=== PATIENT | female | born 2000 | race Caucasian/White ===

== ENCOUNTER → 2018-05-05 13:39 | Outpatient (CLI) | payer OTHER, SELFPAY | PROVIDERS: Visit Provider Obstetrics & Gynecology | DX: N39.0 Urinary tract infection, site not specified (principal) | CPT/HCPCS: 87086; 87088 ==

== ENCOUNTER → 2018-05-29 10:04 | Outpatient (CLI) | payer OTHER, SELFPAY ==
[2018-05-29 12:14] LABS: Hematocrit 41.2 % (37-47); Hemoglobin 13.4 g/dl (12.0-15.0); Mean Corp Hgb Conc 32.5 g/gl (32-36); Mean Corpuscular Hgb 26.6 pg (27.0-32.0); Mean Corpuscular Volume 81.7 fL (81-99); Mean Platelet Vol. 9.6 fl (6.2-12.0); Platelet Count 364 K/mm3 (150-450); RBC Distribution Width SD 41.5 fl (35.1-43.9); Red Blood Count 5.04 M/mm3 (4.2-5.4); White Blood Count 6.6 K/mm3 (4.4-11.0)
[2018-05-29 12:19] LABS: Scan Indicated on CBC? Y/N NO
[2018-05-29 12:38] LABS: Ferritin 68 ng/mL (8-252); Iron 73 ug/dL (50-170); Iron Binding Capacity,Total 430 ug/dL (250-450); Thyroid Stim Hormone (TSH) 1.23 uIU/mL (0.358-3.74)
== END ==
PROVIDERS: Visit Provider Obstetrics & Gynecology
DX: R53.83 Other fatigue (principal)
CPT/HCPCS: 36415; 82728; 83540; 83550; 84443; 85027

== ENCOUNTER → 2019-07-18 13:22 | Outpatient (CLI) | payer OTHER, SELFPAY | PROVIDERS: Referring Provider Obstetrics & Gynecology; Visit Provider Obstetrics & Gynecology | DX: Z12.4 Encounter for screening for malignant neoplasm of cervix (principal); Z11.3 Encounter for screening for infections with a predominantly sexual mode of transmission ==

== ENCOUNTER → 2020-10-06 14:36 | Outpatient (CLI) | payer OTHER, SELFPAY ==
[2020-10-06 15:25] LABS: hCG Titer Quant., Serum 3 mIU/mL (1-3)
== END ==
PROVIDERS: Visit Provider Obstetrics & Gynecology
DX: O03.9 Complete or unspecified spontaneous abortion without complication (principal)
CPT/HCPCS: 36415; 84702; 86850; 86900; 86901

== ENCOUNTER → 2020-11-14 10:43 | Outpatient (CLI) | payer OTHER, SELFPAY ==
[2020-11-14 11:47] LABS: Estradiol 300.6 pg/mL
[2020-11-14 11:56] LABS: Progesterone Level 12.37 ng/mL (See Comment)
[2020-11-14 12:06] LABS: hCG Titer Quant., Serum 1791 mIU/mL (1-3)
[2020-11-18 20:07] LABS: Chlamydia By Nucleic Acid AMP Negative (Negative)
[2020-11-18 23:15] LABS: Gonococcus By Nucleic Acid AMP Negative (Negative)
== END ==
PROVIDERS: Visit Provider Obstetrics & Gynecology
DX: Z11.3 Encounter for screening for infections with a predominantly sexual mode of transmission (principal); Z34.81 Encounter for supervision of other normal pregnancy, first trimester
CPT/HCPCS: 36415; 82670; 84144; 84702; 87491; 87591

== ENCOUNTER → 2020-11-20 16:24 | Outpatient (CLI) | payer OTHER, SELFPAY ==
[2020-11-20 17:13] LABS: Estradiol 374.3 pg/mL
[2020-11-20 17:36] LABS: hCG Titer Quant., Serum 9220 mIU/mL (1-3)
== END ==
PROVIDERS: Visit Provider Obstetrics & Gynecology
DX: O20.0 Threatened abortion (principal)
CPT/HCPCS: 36415; 82670; 84144; 84702

== ENCOUNTER → 2020-12-12 14:19 | Outpatient (CLI) | payer OTHER, SELFPAY ==
[2020-12-12 15:21] LABS: Color, Urine Yellow (Yellow); Glucose, Dipstick Normal (Normal); Ketone-Dipstick Negative (Negative); Leukocyte Esterase-Dipstick Negative /ul (Negative); Nitrite-Dipstick Negative (Negative); Occult Blood-Urine Negative /ul (Negative); Protein-Dipstick Negative (Negative); Specific Gravity, Urine 1.015 (1.002-1.030); Urine Bilirubin Dipstick Negative (Negative); Urine Clarity Clear (Clear); Urine Urobilinogen Normal (Normal)
[2020-12-12 15:31] LABS: Absolute Lymphocyte Count 2.63 X10^3/uL (0.83-4.51); Absolute Neutrophil Count 9.5 X10^3/uL (2.0-7.7); Basophil# 0.06 X10^3/uL; Basophil% 0.5 % (0-1); Eosinophil# 0.17 X10^3/uL; Eosinophils% 1.3 % (0-5); Hematocrit 38.3 % (37-47); Hemoglobin 12.3 g/dL (12.0-15.0); Lymphocyte # 2.63 X10^3/ul (0.83-4.51); Lymphocyte % 20.1 % (19-41); Mean Corp Hgb Conc 32.1 g/dL (32-36); Mean Corpuscular Hgb 26.1 pg (27.0-32.0); Mean Corpuscular Volume 81.3 fL (81-99); Mean Platelet Vol. 9.6 fl (6.2-12.0); Monocyte# 0.67 X10^3/uL; Monocyte% 5.1 % (0-10); NRBC Flagged by Analyzer 0 % (0-5); Neutrophil # 9.48 X10^3/uL (2.7-7.7); Neutrophil % 72.6 % (47-70); Platelet Count 405 K/mm3 (150-450); RBC Distribution Width SD 41.1 fl (35.1-43.9); Red Blood Count 4.71 M/mm3 (4.2-5.4); White Blood Count 13.1 K/mm3 (4.4-11.0)
[2020-12-12 15:48] LABS: Glucose Challenge Gest 1H 50g 104 mg/dL (70-140); Thyroid Stim Hormone (TSH) 0.96 uIU/mL (0.358-3.74)
[2020-12-12 16:25] LABS: Amphetamine Urine VISTA NEGATIVE (<1000 ng/mL); Barbiturate Urine VISTA NEGATIVE (< 200 ng/mL); Benzodiazepine Urine VISTA NEGATIVE (< 200 ng/mL); Cocaine Urine VISTA NEGATIVE (< 300 ng/mL); Ecstacy Urine VISTA NEGATIVE (< 500 ng/mL); Methadone Urine VISTA NEGATIVE (< 300 ng/mL); PCP Urine VISTA NEGATIVE (< 25 ng/mL); THC Urine VISTA NEGATIVE (< 50 ng/mL); Vista UDS pH Range 7
[2020-12-15 09:27] LABS: HIV - WCH Non-Reactive (Nonreactive); Hepatitis B Surface Antigen Non-Reactive (Nonreactive); Hepatitis C Antibody Non-Reactive (Nonreactive); Rubella IgG Reactive (Nonreactive); Syphilis Antibodies Non-reactive; Vitamin D,25 Hydroxy 17.2 ng/mL
== END ==
PROVIDERS: Visit Provider Obstetrics & Gynecology
DX: Z34.82 Encounter for supervision of other normal pregnancy, second trimester (principal); N76.0 Acute vaginitis
CPT/HCPCS: 36415; 80307; 81002; 82306; 82950; 84443; 85025; 86703; 86762; 86780; 86803; 87086; 87088; 87340

== ENCOUNTER 2021-04-24 13:42 | Outpatient (CLI) | payer OTHER, SELFPAY ==
[2021-04-24 14:18] LABS: Hematocrit 32.7 % (37-47); Hemoglobin 10.9 g/dL (12.0-15.0); Mean Corp Hgb Conc 33.3 g/dL (32-36); Mean Corpuscular Volume 81.1 fL (81-99); Mean Platelet Vol. 8.8 fl (6.2-12.0); Platelet Count 300 K/mm3 (150-450); RBC Distribution Width CV 14.5 % (11.6-14.6); RBC Distribution Width SD 42.2 fl (35.1-43.9); Red Blood Count 4.03 M/mm3 (4.2-5.4); White Blood Count 16.6 K/mm3 (4.4-11.0)
[2021-04-24 14:52] LABS: Glucose Challenge Gest 1H 50g 151 mg/dL (70-140)
== END 2021-04-24 23:59 | disposition home or self-care (01) ==
LOC: WOBLAB 13:44
PROVIDERS: Visit Provider Obstetrics & Gynecology
DX: Z34.82 Encounter for supervision of other normal pregnancy, second trimester (principal)
CPT/HCPCS: 36415; 82950; 85027

== ENCOUNTER 2021-04-28 08:36 | Outpatient (CLI) | payer OTHER, SELFPAY ==
[2021-04-28 10:54] LABS: Glucose GTT-Gestational 1 Hr 203 mg/dL (<190)
[2021-04-28 10:58] LABS: Glucose GTT-Gestation. Fasting 85 mg/dL (<105)
[2021-04-28 12:40] LABS: Glucose GTT-Gestational 2 Hr 174 mg/dL (<165)
[2021-04-28 12:42] LABS: Glucose GTT-Gestational 3 Hr 147 L (<145)
== END 2021-04-28 23:59 | disposition home or self-care (01) ==
LOC: WOBLAB 08:39
PROVIDERS: Visit Provider Obstetrics & Gynecology
DX: O99.810 Abnormal glucose complicating pregnancy (principal)
CPT/HCPCS: 36415; 82951; 82952

== ENCOUNTER 2021-06-25 15:59 | Outpatient (CLI) | payer OTHER, SELFPAY ==
[2021-06-25 18:31] LABS: Group B Strep DNA By PCR Negative (Negative); Internal Control PASS; Probe Check PASS; Specimen Processing Control PASS
== END 2021-06-25 23:59 | disposition home or self-care (01) ==
LOC: LABSPEC 16:01
PROVIDERS: Referring Provider Student in an Organized Health Care Education/Training Program; Visit Provider Student in an Organized Health Care Education/Training Program
DX: Z36.85 Encounter for antenatal screening for Streptococcus B (principal)
CPT/HCPCS: 87081; 87653

== ENCOUNTER 2021-07-14 06:52 | Inpatient (IN) | payer OTHER, SELFPAY ==
[2021-07-14] VITALS (14 sets, daily range): BP systolic 111–143; BP diastolic 60–86; PULSE 44–94; TEMP 36.6–37.1; O2SAT 84–99; BMI 44.8
[2021-07-14] MEDS: Lactated Ringers 1,000 ML 50 ML IV (07:45)
[2021-07-14 08:01] LABS: Bedside Glucose 85 mg/dL (74-106)
[2021-07-14 08:11] LABS: Absolute Lymphocyte Count 3.08 X10^3/uL (0.83-4.51); Absolute Neutrophil Count 11.1 X10^3/uL (2.0-7.7); Basophil# 0.04 X10^3/uL; Basophil% 0.3 % (0-1); Eosinophil# 0.22 X10^3/uL; Eosinophils% 1.4 % (0-5); Hemoglobin 11.9 g/dL (12.0-15.0); Lymphocyte # 3.08 X10^3/ul (0.83-4.51); Lymphocyte % 19.8 % (19-41); Mean Corp Hgb Conc 33.1 g/dL (32-36); Mean Corpuscular Hgb 26.5 pg (27.0-32.0); Mean Corpuscular Volume 80.2 fL (81-99); Mean Platelet Vol. 9.2 fl (6.2-12.0); Monocyte# 1.02 X10^3/uL; Monocyte% 6.6 % (0-10); NRBC Flagged by Analyzer 0 % (0-5); Neutrophil # 11.11 X10^3/uL (2.7-7.7); Neutrophil % 71.4 % (47-70); Platelet Count 305 K/mm3 (150-450); RBC Distribution Width CV 15.9 % (11.6-14.6); Red Blood Count 4.49 M/mm3 (4.2-5.4); White Blood Count 15.5 K/mm3 (4.4-11.0)
[2021-07-14] MEDS: miSOPROStol 25 MCG TABLET VAGINAL ×2 (09:15→13:15)
--- NOTE | 2021-07-14 09:15 | PCM.HP.OB ---
HPI - General General Date of Admission: 07/14/21 HPI Narrative JESSICA PRIETO, is a 21 F who presents at 39 1/7 wga with hx gestational diabetes for scheduled induction of labor. OB PROBLEM LIST: BMI 40 - 34w NST weekly planned, office class enc. Declines genetic and carrier screening Epidural planned, office childbirth class enc. GDM Had Tdap vaccine Migraine headaches Takes Zoloft for depression/anxiety Maternal Data Information DENIZ Calculator Estimated Delivery Date Method Current WG Current Estimate 07/20/21 Ultrasound #1 39w 1d Other Estimates 06/03/21 LMP (Certain) 45w 6d PFSH PFSH Medical History (Updated 07/14/21 @ 21:[address] Martine Randall MD) Anxiety Depression Gestational diabetes Headache Home Medications [id number] [Fioricet] 2 tab PO Q4H PRN 07/14/21 [History Last Taken 06/22/21] cholecalciferol (vitamin D3) [Vitamin D3] 125 mcg PO DAILY 07/14/21 [History Last Taken 07/13/21 23:00] ferrous sulfate [iron] 325 mg PO DAILY 07/14/21 [History Last Taken 07/13/21 23:00] hydroxyzine pamoate [Vistaril] 25 mg PO DAILY 07/14/21 [History Last Taken 07/13/21 23:00] magnesium 15 mg PO DAILY 07/14/21 [History Last Taken 07/13/21 23:00] metformin 750 mg PO DAILY 07/14/21 [History Last Taken 07/13/21 23:00] vit [id number] [ + DHA] 1 pkg PO DAILY 07/14/21 [History Last Taken 07/13/21 23:00] sertraline [Zoloft] 100 mg PO DAILY 07/14/21 [History Last Taken 07/13/21 23:00] Allergy/AdvReac Type Severity Reaction Status Date / Time No Known Allergies Allergy Verified 07/14/21 07:37 Family History (Updated 07/14/21 @ 21:[address] Martine Randall MD) Other Diabetes Surgical History (Updated 07/14/21 @ 09:06 by Blessing Espinoza) Hx of cholecystectomy Social History Smoking Status: Never smoker History 2 Elective abortions Hx Para 0 Spontaneous abortions 1 Hx # Term Pregnancies Ectopic pregnancies Hx # Pregnancies Multiple births # of living children NST FHR Rate Baby A Baseline: 130 Variability:: Moderate Accelerations:: 15 x 15 NST Reactive:: Yes FHR Category:: Category I Uterine Activity:: 04/23 Vital Signs Vital Signs Vital Signs: 07/14/21 08:08 07/14/21 12:53 07/14/21 17:38 Temperature 98.7 F Temperature Source Axillary Pulse Rate 86 91 91 Blood Pressure 121/69 H 136/78 H 143/86 H BP Systolic 121 136 143 BP Diastolic 69 78 86 Pulse Ox 97 98 07/14/21 17:40 07/14/21 18:43 07/14/21 19:20 Temperature 98.4 F Temperature Source Temporal Pulse Rate 94 89 Blood Pressure 133/82 H BP Systolic 133 BP Diastolic 82 Pulse Ox 98 07/14/21 19:21 07/14/21 19:22 07/14/21 20:28 Temperature 98.2 F Temperature Source Oral Temporal Pulse Rate 44 L 89 Blood Pressure 132/84 H 124/70 H BP Systolic 132 124 BP Diastolic 84 70 Pulse Ox 97 84 96 Weight Weight: 129.727 kg Body Mass Index (BMI) 44.8 Physical Exam Const alert, oriented x3 and no apparent distress HEENT normocephalic Resp normal respiratory effort, normal air movement and clear to auscultation bilaterally Cardio regular rate and regular rhythm GI normal to inspection, nondistended, normoactive bowel sounds, soft to palpation, non-tender and non-distended Inspection: gravid Labs Labs Labs: Blood Type A POSITIVE Antibody Screen NEGATIVE Hct 36.0 % (37-47) L Hgb 11.9 g/dL (12.0-15.0) L Syphilis Total Ab Non-reactive Rubella IgG Antibody Reactive (Nonreactive) Hep Bs Antigen Non-Reactive (Nonreactive) Chlamydia DNA (ABNER) Negative (Negative) Neisseria gonorrhoeae DNA (ABNER) Negative (Negative) HIV 1&2 Antibody Non-Reactive (Nonreactive) Glucose 1 Hr 50 gm 151 mg/dL (70-140) H Group B Strep DNA Negative (Negative) Miscellaneous Test 3h GTT [phone] mg/dL on 04/28/21 Antepartum Flow Sheet Highlights: SHM Jun 1 38 284 120/76 tr - 40 V 2+ 50 -2 SHM Jun 1 37 291 130/84 tr - 39 V, 2+ 50 -2 CM Jun 1 36 284 122/70 tr ne 36 V SHM Jun 1 35 283 122/80 tr - 40 CM 29 May 1 34 287 130/60 - - 40 V SHM 25 May 1 33 285 120/70 tr - 36 V SHM May 2 31 282 128/78 - - 35 V SHM Apr 2 27 272 128/68 tr - 31 SHM Mar 17 23 264 108/64 - - 23 SHM Feb 4 19 252 118/64 - - 19 SHM Jan 15 14 247 118/62 - - SHM Dec 4 8 253 110/70 tr - SHORT ANTEPARTUM NOTE(S): Jun see note 20 Jun see note 14 Apr Fm well, No complaints Jun see note 29 May see note 25 May see note 09 May doing well Apr see note 14 Mar up 12 lbs in 4 weeks Feb see note 09 Jan see note 01 Oct declines carrier and genetic screening LONG ANTEPARTUM NOTES: Jun Induction is scheduled 07/14 at 7 am. Had corneal abrasions from contacts and given eye drops. Good FM, mild edema. She did not do any blood sugars for the last week. BPP done today and will have cervix ck. LMT Jun On Valtrex po, erythromycin ointment for corneal abrasion. US today, EFW 3583g ([id number]) EFW 72nd%. LAWSON 13.5cm. BPP 10/19. HC/AC 0.95. Reviewed risk for shoulder dystocia including risk for fracture, nerve injury affecting upper extremity, HIE with CP, loss. Pt continues Metformin. No blood sugars today, reported difficulty due to corneal abrasion. Jun Copy of blood sugars for Dr PUTNAM review. Feeling well and has done all AM fasting blood sugars since last visit! Still spotty with any PP. Mild edema reported in the pm's but none appreciated today. Further discussion regarding induction with Dr PUTNAM. LMT Jun BPP 10/19 today, LAWSON 12.4cm. Fasting and available postprandial sugars at target. Advised IOL at 39wga, reviewed GDM on metformin indications, r/b. Plan pitocin. Consents signed. Jun H&P taken to OB. tkg Jun 36/3w. GDMA2 - few glucose logs pt brought wnl. Again discussed importance of monitoring and adequate glucose control, risks of not. BPP 10/19 today. GBS done. Declines LARC. Carbuncle right inner thigh - scant bloody drainage today, induration. No pus. Rx abx. Call for fever, increasing erythema/edema, foul smelling drainage. F/u 1w. CM Jun Jessica is here for visit. She is doing well. She has done most fasting am blood sugars since last visit. Still with minimal 1 hours. Good FM, minimal edema. Had Tdap after last visit. Reviewed FM, SROM, and labor. Had Tdap vaccine last week. LMT Jun Fasting blood sugars improved, pt with 1-2 postprandial glucose values. Pt notes she eats dinner at 3am then goes to sleep due to her second shift work scheduled. Reviewed importance of monitoring and recommend at least fasting and 2 post prandials. Continue Metformin. Plan for IOL at 39wga. 29 May Jessica 34w1d here for PNV. Good FM. Sl edema. Brought sugars today. She would like to discuss getting the Tdap vaccine. She c/o of spring time allergies. She would like to know if she is able to take Zyrtec with a prescription antihistamine that she takes for irritability. No further questions/concerns at this time. 29 May 34/1w. GDMA2 - metformin. Few logs completed, 1hr PP in office today 114. Continue metformin as rx now. Emphasized need for monitoring and good glucose control to minimize risks of macrosomia/FGR, hydramnios, IUFD. Pt expresses understanding. Continue testing and growth US as scheduled. CM 25 May Jessica is here for visit. She relates she still is struggling to be complliant with blood sugars and diet. Strongly encouraged her to try to log more blood sugar and what she eats when they are high. She relates that she just continues to struggle with anything to do with this . Some bilateral ankle pain is noted but not much in the way of edema. We reviewed achy joints in late . FM, PTL, PROM discussed. LMT 25 May Limited home glucose surveillance, reviewed with pt importance of monitoring and increased risk for loss associated with uncontrolled sugars as well as abnormal growth and complications. Reviewed increased lifetime risk for DM and sequelae for her and child. Reports this is just the way I am...I've always been like this when it comes to things. Denies mood concerns. Post prandial glucose elevation present. Rx Metformin. Plan weekly visits until well controlled, wekly BPP. May Jessica 31w2d here for PNV Good FM slight edema in her feet. Sugars copied but states she always forgets to take her sugars only 4 days recorded. Recommended to set a timer to help her remember to take her sugars. BR May US EFW 1936g (70th%), HC/AC 1.1, LAWSON 15.8cm. Findings reviewed. S>D and given class III obesity plan repeat growth in 4 weeks. No blood sugar monitoring x 1.5 weeks. Reviewed with patient importance of monitoring, increased risk for stillbirth associated with hyperglycemia as well as adverse outcomes including shoulder dystocia and electrolyte issues. Advised fasting and at least 2 postprandial blood sugars daily. Pt reports understanding. Apr Jessica is here for diabetic teaching at 29 weeks gestation. Her is a DMII on insulin so she is somewhat familiar with diabetes and monitoring. Jessica brought her glucometer and testing supplies today. While going over glucose finger stick instructions step by step she successfully demonstrated obtaining glucometer reading- which was 173. Advised testing upon waking and at one hour interval after each meal. If she tests at 2 hours to note as such on record sheet. Given enough record sheets for 5 weeks. Instructed to bring completed sheets with each office visit. Dietary guidelines discussed and was given ADA PLAN YOUR PORTIONS form. Encouraged to keep BS under tight control to lessen effects on baby at . She is agreeable. Matilda RN. Apr Jessica is here for visit. Had GCT, CBC today. Relates had a couple of low blood sugars recently. She is very concerned about this because she also felt lightheaded and dizzy. is a diabetic. He encouraged her to drink a can of Pepsi when she feels this way. Advised better to eat protein snack often, increase po fluids. Aim to have a protein snack at bedtime and small amount of protein q 3 hours to help prevent the low blood sugar, drink plenty of water and when eating carbs always try to eat complex carbs. She is also having twice weekly h/a vs migraine. She is taking 250 mg of Magnesium at bedtime. She could increase this and further discussion with Dr PUTNAM. Reviewed FM, PTL, PROM, and encouraged Tdap vaccine. LMT Apr Fiorecet for migraines. Sx c/w abnormal glucose homeostasis, f/u glucola screen. PTL, ROM, FM precautions. Growth US next visit for S>D. Discussed maternity leave, pt seeking employment at this time since lay off, but difficult finding part-time work in . Will need SW consultation. Plans to enroll in WIC. Discussed PPBC. Mar Jessica is here for a pnv w/ SO at 04/07. Good FM. No edema present. Denies concerns/ questions at this time. Up 12 lbs since last visit 4 weeks ago. Pt initially wasn't eating very much during the beginning of her . 1 hr GTT supplies and instructions given. MK Mar Reports severe pain associated with constipation, now resolved. Has been eating foods that are more likely to give her bowel movements since then. Counseled on increased fiber, adequate hydration, stool softener, milk of magnesium prn. PTL precuations. Feb Jessica is 19w1d she had her comprehensive ultrasound today. Positive movement. No edema. She C/O sharp shooting pain on both sides. Not consistent. Otherwise she is doing well. BR 14 Feb Anatomy scan with limited heart and diaphragm views, otherwise wnl, EFW 54th%, POSTERIOR placenta, MALE. Rpt views next visit. Discussed [place] contractions. Jan Jessica is here for visit. She relates that she is not doing well. She feels that she is struggling in her housing situation, eating, sleeping on a regular schedule, lacks motivation. She is on 150 mg of Sertraline and has f/u with her PCP/Nurse Practitioner this Tuesday and wondering about medication adjustment and will discuss with her. Has been in counseling prior when she lived in [place]. Strongly encouraged her to restart this. We can refer her to someone closer if she prefers. She is encouraged to start eating 3 meals or divided 6 meals per day. Attempt walking 30 minutes per day, Try establishing a better bedtime routine. Needs to work on getting a job so they can get their own house. She knows that she needs to start with the basics to get to the end result. Will discuss all further with Dr PUTNAM. LMT Jan Encouraged counseling. f/u with PCP scheduled in 4 days for mood. Pt denies SI. Reviewed labs, Rh positive. Vitamin D low - Rx 5000 IU D3 daily. 13 Dec TELEHEALTH NOB VISIT, 45 MINUTE DURATION. Jessica is a 20 year old A1 with an DENIZ of 07/20/2021, current GA is 10 w 2 d. She resides with her , Satya, and Satya's parents. They recently were , and are looking into living arrangements on their own. Delivery at [facility] is planned with an epidural, and she plans to breastfeed. Office childbirth and classes discussed and encouraged. Office practice patterns reviewed, including how to contact the office during/after hours, emergencies/danger signs, and common prn OTC medications approved/not approved for use during . S/S of a UTI discussed, and she knows to call the office for a suspected UTI. Round ligament pain reviewed. Jessica takes an OTC vitamin and reports that she tolerates this well. She reports nausea most days, states it's not terrible. She is able to eat and drink most things, and has had no emesis. Reviewed measures that may help minimize nausea, including small frequent meals with protein included throughout the day, carb rich foods when nauseated, adequate water hydration of at least one gallon per 24 hours, trying lemon water or weak lemonade, motion sickness bracelets, Unisom (Doxylamine) at bedtime, and Vitamin B6 50 mg twice a day. Jessica is a non-smoker, and denies use of drugs or ETOH. She shares a history of depression and anxiety, and reports that Zoloft helps tremendously. She will likely decline carrier and genetic screening. Denies any significant family genetic/defect history for her or Satya's families. Jessica has a history of Migraine headaches, and asks if she can take Maxalt for same as needed, discussed with Dr. Margo Randall, and at this point she wants Jessica to discontinue prn use of Maxalt and try Magnesium Glycinate 200-400 mg once a day; Jessica is agreeable to this. She feels that her migraines have been occurring less since . Jessica plans to start walking 5 times a day. She is aware of lifting restrictions for of no more than 10-20 lbs. water/dietary/caloric needs reviewed, including anticipated weight gain, limiting empty calories, limiting caffeine to one cup a day, and food safety. Jessica states that she understands all information provided during NOB visit, and has no questions following same.. AW Dec A pos. 1h GCT 104. Dec Encouraged Influenza vaccine. Light bleeding noted when tried to urinate. No UA specimen. Early glucola? Did not eat anything for breakfast this am. LMT Dec US today with shah IUP 8w4d, DENIZ 07/20/21. labs today with 25 OHVitamin D, early glucola. Discussed aneuploidy screening tests and carrier screening. Pt declines carrier screening at this time. Bleeding precautions reviewed - pt reports spotting 2 weeks ago and today bright red blood, now resolved. SSE performed with no bleeding or clear source. Pt reassured. Vaginitis NAAT sent. Nov Jessica is being seen for missed menses. FOB is with pt for visit today. . UPT in office today is positive. LMP prior to SAB 10/06/20 is 08/27/20. Last pap 07/18/2019 WNL. Cervical cultures to be done today. Pt is having uneasy smells where somethings used to smell good and now they just make here nauseous. information reviewed with pt. Medications and allergies are up to date. AM Assessment & Plan (1) 39 weeks gestation of : PLAN: Misoprostol Cat I FHR (2) Gestational diabetes: QUALIFIERS: Gestational diabetes mellitus control: oral hypoglycemic-controlled Trimester: third trimester Qualified Code(s): O24.415 - Gestational diabetes mellitus in , controlled by oral hypoglycemic drugs PLAN: controlled on Metformin Monitor glucose per protocol
[2021-07-14 09:31] LABS: Bedside Glucose 86 mg/dL (74-106)
[2021-07-14 13:01] LABS: Bedside Glucose 79 mg/dL (74-106)
[2021-07-14] MEDS: 0.9% Saline Lock 10 ML Syringe IV (17:40)
[2021-07-14] MEDS: Oxytocin 30 units/NS 500 ml 30 UNITS/500 ML IV.SOLN IV (17:40)
[2021-07-14 17:51] LABS: Bedside Glucose 79 mg/dL (74-106)
--- NOTE | 2021-07-14 21:13 | PCM.PN.OB ---
Subjective Subjective No complaints. Notes mild cramping in her back. Objective Data Objective Data Vital Signs: Vital Signs Temp Pulse BP Pulse Ox 98.2 F 89 124/70 H 96 07/14/21 20:28 07/14/21 20:28 07/14/21 20:28 07/14/21 20:28 Weight: 129.727 kg Body Mass Index (BMI) 44.8 Intake & Output: Intake and Output for Last 24 Hours 07/12/21 07/13/21 07/14/21 23:59 23:59 23:59 Intake Total 86.44 / 86.44 Balance 86.44 / 86.44 Lab / Micro Data Result Diagrams: 07/14/21 07:45 Labs: Laboratory Results - last 24 hr 07/14/21 07:45: WBC 15.5 H, RBC 4.49, Hgb 11.9 L, Hct 36.0 L, MCV 80.2 L, MCH 26.5 L, MCHC 33.1, RDW Std Deviation 46.0 H, RDW Coeff of Shahbaz 15.9 H, Plt Count 305, MPV 9.2, Immature Gran % (Auto) 0.500, Neut % (Auto) 71.4 H, Lymph % (Auto) 19.8, [place] % (Auto) 6.6, Eos % (Auto) 1.4, Baso % (Auto) 0.3, Absolute Neuts (auto) 11.1 H, Absolute Lymphs (auto) 3.08, Nucleated RBC % 0 07/14/21 07:45: Blood Type A POSITIVE, Antibody Screen NEGATIVE 07/14/21 07:55: POC Glucose 85 07/14/21 09:19: POC Glucose 86 07/14/21 12:55: POC Glucose 79 07/14/21 17:37: POC Glucose 79 Micro: Microbiology 07/14/21 07:45 Nasal Secretion SARS-CoV-2 Antigen (Rapid) - Final Physical Exam Narrative GEN - NAD, AAO x 3 FHR 135, moderate variability, + accelerations, no decelerations TOCO 4-5/10 SVE 3/60/-2 at 1652 per RN exam Assessment & Plan (1) Gestational diabetes: QUALIFIERS: Gestational diabetes mellitus control: oral hypoglycemic-controlled Trimester: third trimester Qualified Code(s): O24.415 - Gestational diabetes mellitus in , controlled by oral hypoglycemic drugs PLAN: well controlled (2) 39 weeks gestation of : PLAN: Continue pitocin as tolerated by mother and fetus
[2021-07-14 21:35] LABS: Bedside Glucose 76 mg/dL (74-106)
[2021-07-14] MEDS: Acetaminophen 500 MG Tablet PO (22:29)
[2021-07-15] VITALS (71 sets, daily range): BP systolic 86–164; BP diastolic 44–100; PULSE 71–106; RESP 18; TEMP 36.2–37.2; O2SAT 91–100
[2021-07-15] MEDS: Oxytocin 30 units/NS 500 ml 30 UNITS/500 ML IV.SOLN 20 UNITS IV (01:37)
[2021-07-15 02:03] LABS: ROM Internal Control Test YES-OK TO RESULT pt. (Internal QC)
[2021-07-15 02:05] LABS: ROM Patient Test POSITIVE (Negative)
[2021-07-15] MEDS: Lactated Ringers 500 ML 999 ML IV ×3 (02:18→09:44)
[2021-07-15 02:30] LABS: Bedside Glucose 68 mg/dL (74-106)
[2021-07-15 02:30] LABS: Bedside Glucose 90 mg/dL (74-106)
[2021-07-15] MEDS: fentaNYL-bupivacaine (epidural) 100 ML BAG EPIDURAL ×3 (03:18→13:50)
[2021-07-15] MEDS: Lactated Ringers 1,000 ML 200 ML IV ×3 (03:48→14:51)
[2021-07-15 05:21] LABS: Bedside Glucose 82 mg/dL (74-106)
--- NOTE | 2021-07-15 06:06 | PCM.PN.OB ---
Subjective Subjective Comfortable with epidural. No complaints. Objective Data Objective Data Vital Signs: Vital Signs Temp Pulse BP Pulse Ox 98.2 F 75 109/58 L 97 07/15/21 05:09 07/15/21 05:10 07/15/21 05:10 07/15/21 05:09 Weight: 129.727 kg Body Mass Index (BMI) 44.8 Intake & Output: Intake and Output for Last 24 Hours 07/13/21 07/14/21 07/15/21 23:59 23:59 23:59 Intake Total 119.27 / 127.27 2153.17 / 2153.17 Balance 119.27 / 127.27 2153. / 2152. Lab / Micro Data Result Diagrams: 07/14/21 07:45 Labs: Laboratory Results - last 24 hr 07/14/21 07:45: WBC 15.5 H, RBC 4.49, Hgb 11.9 L, Hct 36.0 L, MCV 80.2 L, MCH 26.5 L, MCHC 33.1, RDW Std Deviation 46.0 H, RDW Coeff of Shahbaz 15.9 H, Plt Count 305, MPV 9.2, Immature Gran % (Auto) 0.500, Neut % (Auto) 71.4 H, Lymph % (Auto) 19.8, [place] % (Auto) 6.6, Eos % (Auto) 1.4, Baso % (Auto) 0.3, Absolute Neuts (auto) 11.1 H, Absolute Lymphs (auto) 3.08, Nucleated RBC % 0 07/14/21 07:45: Blood Type A POSITIVE, Antibody Screen NEGATIVE 07/14/21 07:55: POC Glucose 85 07/14/21 09:19: POC Glucose 86 07/14/21 12:55: POC Glucose 79 07/14/21 17:37: POC Glucose 79 07/14/21 21:30: POC Glucose 76 07/15/21 01:43: POC Glucose 68 L 07/15/21 01:44: Vag Amniotic Fld Detect POSITIVE H 07/15/21 02:13: POC Glucose 90 07/15/21 05:12: POC Glucose 82 Micro: Microbiology 07/14/21 07:45 Nasal Secretion SARS-CoV-2 Antigen (Rapid) - Final Physical Exam Narrative GEN - NAD, AAO x 3 SVE 4/60/-2, moderate and midposition NST FHR Rate Baby A Baseline: 130 Variability:: Moderate Accelerations:: 15 x 15 Decelerations:: None NST Reactive:: Non-Reactive FHR Category:: Category I Uterine Activity:: 2/10 min Assessment & Plan (1) Gestational diabetes: QUALIFIERS: Gestational diabetes mellitus control: oral hypoglycemic-controlled Trimester: third trimester Qualified Code(s): O24.415 - Gestational diabetes mellitus in , controlled by oral hypoglycemic drugs (2) 39 weeks gestation of : PLAN: Forebag ruptured and IUPC, ISE placed Resume pitocin after pit break
[2021-07-15 09:55] LABS: Bedside Glucose 78 mg/dL (74-106)
[2021-07-15] MEDS: Sertraline 100 MG Tablet PO (10:46)
[2021-07-15] MEDS: hydrOXYzine PAM 25 MG Capsule PO (10:46)
[2021-07-15 13:20] LABS: Bedside Glucose 83 mg/dL (74-106)
[2021-07-15] MEDS: Acetaminophen 500 MG Tablet PO (16:13)
[2021-07-15 17:20] LABS: Bedside Glucose 66 mg/dL (74-106)
[2021-07-15] MEDS: Sodium Citrate/Citric Acid 30 ML UDC PO (18:05)
[2021-07-15] MEDS: Methylergonovine 0.2 MG/ML Ampul IM (19:13)
--- NOTE | 2021-07-15 19:55 | EX.PCM.OBRPT ---
Maternal Data Information DENIZ Calculator Estimated Delivery Date Method Current WG Current Estimate 07/20/21 Ultrasound #1 39w 2d Other Estimates 06/03/21 LMP (Certain) 46w 0d Details Operative Information Date of Procedure: 07/15/21 Pre-Operative Diagnosis: Failure to Progress, Gestational Diabetes Post-Operative Diagnosis: Due To Progress, Gestational Diabetes Classification: FRANCY Procedure Type: low transverse biological scientist #1: Sheldon Patel Type of Anesthesia: Epidural (With Duramorph) Anesthesiologist: Giorgio Bull Antibiotic Given: Ancef 3 grams IV x1 Drain: Rosario to straight drain Estimated Blood Loss: 750 cc Fluids Replaced: Crystalloid Findings Description of Procedure: Surgeon: Ivan Sexton MD, FACOG Procedure: Primary Low Transverse Cervical Caesarean Section Findings: Viable male infant with Apgars of 7/9 in occiput anterior presentation with clear amniotic fluid and normal three-vessel placenta. Head not well engaged in the pelvis. Indication: This is a 21-year-old who presented to labor and delivery for Pitocin induction at 39+ weeks gestation for gestational diabetes. Membranes were artificially ruptured at approximately 1 AM this morning. By 11 AM this morning patient had progressed to 5/90/-1. She remained at this station and dilation until approximately 7 PM when it was decided to proceed with section for failure to progress and failure of the head to descend into the pelvis. It should be noted that during the day she had 2 breaks from Pitocin after Pitocin was as high as 14 units. Despite this the patient had minimal contractions with Pitocin with an IUPC and scalp electrode in place. No tachycardia or maternal temperature elevations have been noted. care has otherwise been uneventful except patient uses Zoloft for depression. We discussed treatment options including continuing Pitocin versus proceeding with section and the patient desired proceeding with surgery. The patient has been counseled regarding the risk and indications of this procedure including the possibility of bleeding infection and injury to surrounding structures such as bowel bladder. All questions were answered. Procedure: Patient was taken to the operating room where after epidural anesthesia was redosed, the patient was prepped and draped in usual sterile fashion; a Rosario catheter had been previously placed. Díaz Straps were placed. The abdomen was entered through a Pfannenstiel incision and peritoneum was entered bluntly. After developing a bladder flap on the lower uterine segment a low transverse incision was made on the uterus and head was easily delivered onto the operative field the nose mouth and oropharynx were bulb suctioned. Subsequently a viable male was born with Apgars of 7/9. The was noted to cry move all extremities vigorously on the operative field. The umbilical cord was doubly clamped and ligated and handed to the nursery personnel who were present for the delivery. Placenta was delivered and noted to be 3 vessels and normal. Uterus was exteriorized and remaining placental tissue was removed. There was noted to be an extension of the uterine incision line on the left. The uterus was then closed in 2 layers first with running locked 0 Vicryl suture followed by a second imbricating layer with 0 Vicryl suture. 0 Vicryl suture was then used in a horizontal mattress interrupted fashion to affect final hemostasis of the uterine incision line. Normal fallopian tubes and ovaries were visualized and the uterus was returned to the pelvis. Hemostasis was noted and rectus abdominis muscles were reapproximated in the midline with interrupted Number 0 Vicryl suture in a horizontal mattress fashion. Fascia was closed with running Number 1 PDS Strata fix suture. Subcutaneous tissue was irrigated with copious amounts of saline solution and then closed with running 3-0 Vicryl suture. Skin was closed with 4-0 monocryl suture in a running subcuticular fashion. Steri strips and a Mepilex dressing were placed across the incision. The patient tolerated the procedure well and was taken to the recovery room in satisfactory condition. Sponge, needle, and instrument counts were all reportedly correct. EBL was 750 cc cc. Ancef 3 gms IV was given prior to the procedure. Specimen to Pathology: None Complications: None Presentation: Positive for Vertex Amniotic Membrane Rupture Type: Artificial Amniotic Fluid Description: Clear Placental Delivery Description: Spontaneous Placenta Disposition: [facility] Specimen(s) Sent to Pathology: None Cord Vessel Description: 3 Vessels Cord Entanglement: None Cord Gases: ABG and VBG Infant A Gender: Male (1 minute): 7 (5 minute): 9
[2021-07-15] MEDS: Oxytocin 30 units/NS 500 ml 30 UNITS/500 ML IV.SOLN 167 UNITS IV (20:15)
[2021-07-15] MEDS: HYDROmorphone 0.5 MG/0.5 ML SYRINGE IV (20:33)
[2021-07-15] MEDS: Ketorolac 30 MG/ML Syringe IV (21:03)
[2021-07-15 21:45] LABS: Bedside Glucose 98 mg/dL (74-106)
[2021-07-15] MEDS: Acetaminophen 500 MG Tablet 1000 MG PO (23:14)
[2021-07-15] MEDS: Lactated Ringers 1,000 ML 100 ML IV (23:16)
[2021-07-16] VITALS (18 sets, daily range): BP systolic 117–152; BP diastolic 60–92; PULSE 102–125; RESP 16–18; TEMP 36.8–37.2; O2SAT 95–99
[2021-07-16] MEDS: Cefazolin 1 GM/50 ML BAG IV ×2 (03:13→12:00)
[2021-07-16] MEDS: Ketorolac 30 MG/ML Syringe IV ×3 (03:14→15:16)
[2021-07-16 04:11] LABS: Bedside Glucose 102 mg/dL (74-106)
[2021-07-16] MEDS: Acetaminophen 500 MG Tablet 1000 MG PO ×2 (05:01→11:40)
[2021-07-16 06:42] LABS: Hematocrit 28.2 % (37-47); Hemoglobin 9.4 g/dL (12.0-15.0); Mean Corp Hgb Conc 33.3 g/dL (32-36); Mean Corpuscular Hgb 26.7 pg (27.0-32.0); Mean Corpuscular Volume 80.1 fL (81-99); Mean Platelet Vol. 9.1 fl (6.2-12.0); Platelet Count 191 K/mm3 (150-450); RBC Distribution Width CV 15.6 % (11.6-14.6); RBC Distribution Width SD 45.3 fl (35.1-43.9); Red Blood Count 3.52 M/mm3 (4.2-5.4); White Blood Count 15.1 K/mm3 (4.4-11.0)
[2021-07-16] MEDS: Enoxaparin 40 MG/0.4 ML Syringe SC (06:58)
--- NOTE | 2021-07-16 08:44 | PCM.PN.OB ---
Subjective Subjective Patient without complaints. Tolerating diet well. Denies flatus. Minimal vaginal bleeding reported. Breast-feeding is going well. Pain well controlled. Objective Data Objective Data Good urine output. Wound is clean, dry, intact. Hemoglobin okay. Vital Signs: Vital Signs Temp Pulse Resp BP Pulse Ox 98.7 F 116 H 16 136/79 H 98 07/16/21 07:45 07/16/21 07:45 07/16/21 07:45 07/16/21 07:45 07/16/21 07:45 Oxygen Delivery Method Room Air Weight: 286 lb Body Mass Index (BMI) 44.8 Intake & Output: Intake and Output for Last 24 Hours 07/14/21 07/15/21 07/16/21 23:59 23:59 23:59 Intake Total 119.27 / 127.27 7124.17 / 7124.17 946.67 / 946.67 Output Total 2800 / 2800 950 / 950 Balance 119.27 / 127.27 4324.17 / 4324.17 -3.33 / -3.33 Lab / Micro Data Result Diagrams: 07/16/21 06:30 Labs: Laboratory Results - last 24 hr 07/15/21 09:30: POC Glucose 78 07/15/21 13:07: POC Glucose 83 07/15/21 17:13: POC Glucose 66 L 07/15/21 21:08: POC Glucose 98 07/16/21 03:53: POC Glucose 102 07/16/21 06:30: WBC 15.1 H, RBC 3.52 L, Hgb 9.4 L, Hct 28.2 L, MCV 80.1 L, MCH 26.7 L, MCHC 33.3, RDW Std Deviation 45.3 H, RDW Coeff of Shahbaz 15.6 H, Plt Count 191, MPV 9.1 Micro: Microbiology 07/14/21 07:45 Nasal Secretion SARS-CoV-2 Antigen (Rapid) - Final Assessment & Plan (1) Delivery by section: PLAN: Doing well postoperative day #1 status post primary section for failure to progress. Continuing present care.
[2021-07-16] MEDS: Lactated Ringers 1,000 ML 100 ML IV (08:53)
[2021-07-16] MEDS: Sertraline 100 MG Tablet PO (08:53)
[2021-07-16] MEDS: 0.9% Saline Lock 10 ML Syringe IV ×2 (12:46→15:16)
[2021-07-16] MEDS: HYDROcodone Bitartrate/Apap 5/325 Tablet PO ×2 (16:40→23:53)
[2021-07-16] MEDS: Ibuprofen 600 MG Tablet PO (20:54)
[2021-07-17] MEDS: Ibuprofen 600 MG Tablet PO ×2 (01:51→10:20)
[2021-07-17 01:55] VITALS: BP 136/78; PULSE 106; RESP 18; TEMP 36.8; O2SAT 96
[2021-07-17] MEDS: HYDROcodone Bitartrate/Apap 5/325 Tablet PO (06:15)
[2021-07-17 09:00] VITALS: BP 121/79; PULSE 99; RESP 16; TEMP 36.4; O2SAT 95
--- NOTE | 2021-07-17 09:26 | PCM.PN.OB ---
Subjective Subjective Patient without complaints except for some diarrhea. This occurs after she eats. She has not had issues with diarrhea since her gallbladder was taken out a few years ago. This seems to be a bit worse since last Tuesday. Had 2 episodes of passing stool overnight where she did not make it to the bathroom but this is apparently common for her at home. Objective Data Objective Data Vital Signs: Vital Signs Temp Pulse Resp BP Pulse Ox 97.6 F L 99 16 121/79 H 95 07/17/21 09:00 07/17/21 09:00 07/17/21 09:00 07/17/21 09:00 07/17/21 09:00 Oxygen Delivery Method Room Air Weight: 286 lb Body Mass Index (BMI) 44.8 Intake & Output: Intake and Output for Last 24 Hours 07/15/21 07/16/21 07/17/21 23:59 23:59 23:59 Intake Total 7124.17 / 7124.17 2305.00 / 2305.00 Output Total 2800 / 2800 950 / 950 Balance 4324.17 / 4324.17 1355.00 / 1355.00 Lab / Micro Data Result Diagrams: 07/16/21 06:30 Micro: Microbiology 07/14/21 07:45 Nasal Secretion SARS-CoV-2 Antigen (Rapid) - Final Assessment & Plan (1) Delivery by section: PLAN: Doing well postoperative day #2 status post section for failure to progress. If possible we will send stool for C. difficile tox before she leaves today. However, I doubt this is C. difficile as it seems to be a longstanding pattern since her gallbladder surgery, possibly dumping syndrome. Will discharge to home with routine instructions.
--- NOTE | 2021-07-17 09:30 | PCM.DC ---
Discharge Instructions Diet Discharge Diet: No restrictions Activity May resume sexual activity in: 4-6 weeks Lifting Restrictions: 20 pounds Dressing / Incision Call your doctor if your incision/area has: Continuous Slow Oozing, Sudden Increased Bleeding, Increased Pain/ Swelling, Increased Redness and Foul Smelling Discharge Call your doctor if you observe: Fever of 101 or Higher, Inability to urinate, Inability to have a bowel movement and Using more than 1 pad per hour Remove Dressing in: 1-2 weeks Follow Up Care Please Follow Up With: Martine Almonte MD When: Call [phone] for appointment to be seen in 2 weeks. Test Results: Test results from this visit will be discussed in further detail at your follow-up appointment, if applicable. Discharge Plan Admission Admit Date/Time: 07/14/21 06:52 Primary Reason for Your Visit: Primary Attending Provider: Ivan Sexton Primary Care Provider: Care Physician,No Primary Discharge Orders/Prescriptions Prescriptions: New hydrocodone-acetaminophen [Vicodin HP] 10-300 mg tablet 1 tab PO Q6H PRN (Reason: pain (scale score 7-10)) 7 Days Qty: 10 RF: 0 Continued magnesium 500 mg Tablet 15 mg PO DAILY RF: 0 sertraline [Zoloft] 100 mg Tablet 100 mg PO DAILY RF: 0 diglivltzx-hmtiarpnmdqjf-jjby 50-325-40 mg Tablet 2 tab PO Q4H PRN (Reason: migraines) RF: 0 ferrous sulfate [iron] 325 mg (65 mg iron) Tablet 325 mg PO DAILY RF: 0 hydroxyzine pamoate [Vistaril] 25 mg Capsule 25 mg PO DAILY RF: 0 metformin 750 mg Tablet Extended Release 24 Hr 750 mg PO DAILY RF: 0 cholecalciferol (vitamin D3) [Vitamin D3] 125 mcg (5,000 unit) Tablet 125 mcg PO DAILY RF: 0 + DHA 28 mg iron- 975 mcg-200 mg Combo Pack 1 pkg PO DAILY RF: 0 Referrals / Follow Up: Care Physician,No Primary [Primary Care Provider] - Disposition Disposition (needs filled in before D/C Order can be placed): Home, Self Care
[2021-07-17] MEDS: Enoxaparin 40 MG/0.4 ML Syringe SC (10:20)
--- NOTE | 2021-07-20 09:42 | PCM.DC.SUM ---
Providers Date of Admission: 07/14/21 Primary Care Physician: Giovana Primary Care Phys Reason For Visit: C SECTION Diagnosis Discharge Diagnosis (1) Delivery by section: Status: Acute Plan: Patient was instructed to return to office in 6 weeks for check. Medications at Discharge Home Medications + DHA 1 pkg PO DAILY 07/14/21 ueyvdxznco-hhwcxwlzpatml-qzso 2 tab PO Q4H PRN 07/14/21 cholecalciferol (vitamin D3) [Vitamin D3] 125 mcg PO DAILY 07/14/21 ferrous sulfate [iron] 325 mg PO DAILY 07/14/21 hydroxyzine pamoate [Vistaril] 25 mg PO DAILY 07/14/21 magnesium 15 mg PO DAILY 07/14/21 metformin 750 mg PO DAILY 07/14/21 sertraline [Zoloft] 100 mg PO DAILY 07/14/21 hydrocodone-acetaminophen [Vicodin HP] 1 tab PO Q6H PRN 7 Days #10 tab 07/17/21 Weight / BMI Weight Weight: 286 lb Body Mass Index (BMI) 44.8 ABG / Lab / Microbiology Data Result Diagrams: 07/16/21 06:30 Microbiology: Microbiology 07/17/21 11:30 Stool C. difficile GDH Antigen & Toxins - Final 07/17/21 11:30 Stool C. difficile DNA Amplification - Final 07/14/21 07:45 Nasal Secretion SARS-CoV-2 Antigen (Rapid) - Final D/C Instructions Discharge Diet: No restrictions May resume sexual activity in: 4-6 weeks Call your doctor if your incision/area has: Continuous Slow Oozing, Sudden Increased Bleeding, Increased Pain/ Swelling, Increased Redness and Foul Smelling Discharge Call your doctor if you observe: Fever of 101 or Higher, Inability to urinate, Inability to have a bowel movement and Using more than 1 pad per hour Please Follow Up With: Martine Almonte MD When: Call [phone] for appointment to be seen in 2 weeks. Meaningful Use Info Meaningful Use Diagnoses (Choose all that apply): None applicable Discharge Plan Admission Admit Date/Time: 07/14/21 06:52 Primary Reason for Your Visit: Primary Attending Provider: Ivan Sexton Primary Care Provider: Care Physician,No Primary Discharge Orders/Prescriptions Prescriptions: New hydrocodone-acetaminophen [Vicodin HP] 10-300 mg tablet 1 tab PO Q6H PRN (Reason: pain (scale score 7-10)) 7 Days Qty: 10 RF: 0 Continued magnesium 500 mg Tablet 15 mg PO DAILY RF: 0 sertraline [Zoloft] 100 mg Tablet 100 mg PO DAILY RF: 0 zbqtnluiiz-srocgonpdqqda-cssb 50-325-40 mg Tablet 2 tab PO Q4H PRN (Reason: migraines) RF: 0 ferrous sulfate [iron] 325 mg (65 mg iron) Tablet 325 mg PO DAILY RF: 0 hydroxyzine pamoate [Vistaril] 25 mg Capsule 25 mg PO DAILY RF: 0 metformin 750 mg Tablet Extended Release 24 Hr 750 mg PO DAILY RF: 0 cholecalciferol (vitamin D3) [Vitamin D3] 125 mcg (5,000 unit) Tablet 125 mcg PO DAILY RF: 0 + DHA 28 mg iron- 975 mcg-200 mg Combo Pack 1 pkg PO DAILY RF: 0 Referrals / Follow Up: Care Physician,No Primary [Primary Care Provider] - Disposition Disposition (needs filled in before D/C Order can be placed): Home, Self Care
== END 2021-07-17 11:35 | disposition home or self-care (01) | DRG 788 ==
PROVIDERS: Obstetrics & Gynecology; Admitting Provider Obstetrics & Gynecology; Visit Provider Obstetrics & Gynecology
DX: O32.4XX0 Maternal care for high head at term, not applicable or unspecified (principal); O24.425 Gestational diabetes mellitus in childbirth, controlled by oral hypoglycemic drugs; E66.01 Morbid (severe) obesity due to excess calories; F41.9 Anxiety disorder, unspecified; Z37.0 Single live birth; O99.344 Other mental disorders complicating childbirth; F32.A Depression, unspecified; Z3A.39 39 weeks gestation of pregnancy; O99.214 Obesity complicating childbirth
CPT/HCPCS: 59025; 59050; 82962; 84112; 85025; 85027; 86850; 86900; 86901; 87426; 87493; 99218; 99251; J7120; A4216; G0378; G0463; J2405

== ENCOUNTER → 2021-07-21 | Outpatient (CLI) | payer OTHER, SELFPAY | END | disposition home or self-care (01) | PROVIDERS: Visit Provider Obstetrics & Gynecology | DX: N39.0 Urinary tract infection, site not specified (principal) | CPT/HCPCS: 87086; 87088 ==

== ENCOUNTER 2021-07-22 11:04 | Emergency (ER) | payer OTHER, SELFPAY ==
[2021-07-22 11:05] VITALS: BP 146/93; PULSE 82; RESP 16; TEMP 36.8; O2SAT 95; BMI 42.3
[2021-07-22 11:32] VITALS: BP 138/71; PULSE 80; RESP 16; O2SAT 97
--- NOTE | 2021-07-22 12:35 | EDS_ITS ---
HPI History of Present Illness Chief Complaint: Headache Narrative Narrative: 21-year-old female presenting with headache having had a on the fifth at 39 weeks gestation. It was noted that her blood pressures were about the level they are here today. She has a new blood pressure cuff and called the office reporting blood pressures in the 180s over 120s. She was sent to the emergency room. She states that her headache is actually improved. She states that after she developed her headache her SITE SUPERVISING TECHNICAL OPERATOR called her in some Tylenol with caffeine in it and her last dose of this was at midnight. She denies drinking any caffeine. She not on anything for blood pressure. Denies dizziness, lightheadedness, nausea, vomiting, diarrhea, abdominal pain. No fevers or chills PFSH PFSH Medical History Anxiety Depression Gestational diabetes Headache Home Medications + DHA 1 pkg PO DAILY 07/14/21 [History Last Taken 07/13/21 23:00] gjxprzdrjz-ckfhnmuiljxnr-acir 2 tab PO Q4H PRN 07/14/21 [History Last Taken 06/22/21] cholecalciferol (vitamin D3) [Vitamin D3] 125 mcg PO DAILY 07/14/21 [History Last Taken 07/13/21 23:00] ferrous sulfate [iron] 325 mg PO DAILY 07/14/21 [History Last Taken 07/13/21 23:00] hydroxyzine pamoate [Vistaril] 25 mg PO DAILY 07/14/21 [History Last Taken 05/05 23:00] magnesium 15 mg PO DAILY 07/14/21 [History Last Taken 07/13/21 23:00] sertraline [Zoloft] 100 mg PO DAILY 07/14/21 [History Last Taken 07/13/21 23:00] Allergy/AdvReac Type Severity Reaction Status Date / Time No Known Allergies Allergy Verified 07/22/21 11:05 Family History Other Diabetes Surgical History Hx of cholecystectomy Social History Smoking Status: Never smoker ROS ROS ED Constitutional Constitutional ED: Denies chills or fever(s) Eyes Eyes: Denies blurry vision or diplopia ENT ENT ED: Denies rhinorrhea or sore throat Cardiovascular Cardiovascular: Denies chest pain or palpitations Respiratory/Chest Respiratory/Chest: Denies cough or dyspnea Gastrointestinal Gastrointestinal: Denies abdominal pain, nausea or vomiting Genitourinary Genitourinary ED: Denies dysuria or hematuria Musculoskeletal Musculoskeletal: Denies arthralgias or myalgias Integumentary Denies rash Neurologic Neurologic: Reports headache(s); Denies paresthesias or weakness Psychiatric Psychiatric: Denies anxiety or depression EXAM Physical Exam Const Vital Signs: 07/22/21 11:05 07/22/21 11:32 Temperature 98.2 F Temperature Source Temporal Pulse Rate 82 80 Respiratory Rate 16 16 Respiratory Effort Normal Non-Labored Blood Pressure 146/93 H 138/71 H Blood Pressure Mean 110 93 Pulse Ox 95 97 Oxygen Delivery Method Room Air Room Air Positive well nourished General Appearance ED: NAD; Negative for pallor HEENT Reports normocephalic atraumatic Eyes PERRL and EOMs intact bilaterally Resp normal respiratory effort Cardio regular rate and regular rhythm GI non-tender and non-distended Palpation: soft Neuro oriented x3 and CN's II-XII intact bilaterally Sensorium / Orientation: awake and alert Psych mental status grossly normal Skin General Skin Exam: Negative for jaundice or pallor MDM MDM MDM Narrative Medical decision making narrative: I spoke with Dr. Sexton who is on-call for Dr. Margo Randall and discussed her blood pressure of 138/71 here. He felt that we did not need to intervene with any blood pressure medicine currently. He did state that she had called the office with systolic readings in the 180s and diastolic readings in the 120s and has concerned that her blood pressure cuff may be inaccurate. He recommended that we have her rest at home. She is to call the office with any new concerns. I will recheck her next week as far as her blood pressure goes. Patient was amenable to this. She was discharged home in stable condition. Impression: 1. headache 2. Elevated blood pressure Lab Data Attestation: I reviewed the patient's lab results. Discharge Plan Triage Chief Complaint: Headache Other Complaint: Hypertension ED Provider: Judd Ordonez Dx/Rx/DC Orders Instructions: ED Headache Unspecified, ED Hypertension, To Be Confirmed Prescriptions: No Action magnesium 500 mg Tablet 15 mg PO DAILY RF: 0 sertraline [Zoloft] 100 mg Tablet 100 mg PO DAILY RF: 0 azgjehbbff-vmiujgosvzppe-nxgn 50-325-40 mg Tablet 2 tab PO Q4H PRN (Reason: migraines) RF: 0 ferrous sulfate [iron] 325 mg (65 mg iron) Tablet 325 mg PO DAILY RF: 0 hydroxyzine pamoate [Vistaril] 25 mg Capsule 25 mg PO DAILY RF: 0 cholecalciferol (vitamin D3) [Vitamin D3] 125 mcg (5,000 unit) Tablet 125 mcg PO DAILY RF: 0 + DHA 28 mg iron- 975 mcg-200 mg Combo Pack 1 pkg PO DAILY RF: 0 Primary Care Provider: Veronika Villalobos Referrals: Veronika Villalobos DO [Primary Care Provider] - Martine Almonte MD [STAFF PHYSICIAN] - As soon as possible Disposition Disposition: Home, Self Care
[2021-07-22 12:43] VITALS: BP 147/90
--- NOTE | 2021-07-22 12:43 | ED.RN ---
PT VOICES UNDERSTANDING WITH DISCHARGE INSTRUCTIONS, WILL CHECK BP'S TWICE DAILY, CONTINUE TO MONITOR FOR SIGNS OF PRE-ECLAMPSIA.
== END 2021-07-22 12:44 | disposition home or self-care (01) ==
PROVIDERS: Emergency Provider Student in an Organized Health Care Education/Training Program; Visit Provider Student in an Organized Health Care Education/Training Program
DX: O99.891 Other specified diseases and conditions complicating pregnancy (principal); R03.0 Elevated blood-pressure reading, without diagnosis of hypertension; R51.9 Headache, unspecified; Z3A.39 39 weeks gestation of pregnancy
CPT/HCPCS: 99282

== ENCOUNTER 2022-11-07 11:21 | Emergency (ER) | payer OTHER, SELFPAY ==
[2022-11-07 11:22] VITALS: BP 126/75; PULSE 89; RESP 16; TEMP 35.9; O2SAT 98; BMI 44.1
--- NOTE | 2022-11-07 11:36 | EX.ED.DYSGE1 ---
HPI History of Present Illness Chief Complaint: Other, Pain/Inj Informant: patient Onset/Context/Timing Onset: Today Context: Sudden Onset Timing: Continuous Quality: Swelling Location: Face, neck Worsened by: Palpation Relieved by: Nothing Narrative Narrative: Patient presents with facial swelling and possible allergic reaction that began this morning. Patient states she took an injection of Mounjaro last evening. Patient states she had no problems after the injection last night. Patient states she woke up today and felt some swelling in her face and throat. Patient denies any hives. Patient states she has some pain in her face, neck, and skin of her upper chest. Patient states it is worse whenever she touches the area. Patient states she took 4 jehv-qvl-gsqhqdy tablets of Benadryl prior to arrival. [facility] Medical History 39 weeks gestation of Anxiety Depression Gestational diabetes Headache Home Medications pdtukjwvzi-gvnxcydgammlh-kjlzmzla 50 mg-325 mg-40 mg tablet 2 tab PO Q4H PRN migraines 07/14/21 [History Last Taken 06/22/21] cholecalciferol (vitamin D3) 125 mcg (5,000 unit) tablet (Vitamin D3) 125 mcg PO DAILY 07/14/21 [History Last Taken 07/13/21 23:00] ferrous sulfate 325 mg (65 mg iron) tablet (iron) 325 mg PO DAILY low iron in 07/14/21 [History Last Taken 07/13/21 23:00] hydroxyzine pamoate 25 mg capsule (Vistaril) 25 mg PO DAILY Check with primary doctor 07/14/21 [History Last Taken 07/13/21 23:00] magnesium 500 mg tablet 15 mg PO DAILY 07/14/21 [History Last Taken 07/13/21 23:00] vits,calcium 91-iron 28 mg-folic 975 mcg-dha 200 mg oral pack ( + DHA) 1 pkg PO DAILY 07/14/21 [History Last Taken 07/13/21 23:00] sertraline 100 mg tablet (Zoloft) 100 mg PO DAILY Check with primary doctor 07/14/21 [History Last Taken 07/13/21 23:00] prednisone 20 mg tablet 60 mg (3 x 20 mg) PO DAILY #12 TABLETS 11/07/22 [Rx Last Taken Unknown] Allergy/AdvReac Type Severity Reaction Status Date / Time No Known Allergies Allergy Verified 11/07/22 11:21 Family History Other Diabetes Surgical History Delivery by section Hx of cholecystectomy Social History Smoking Status: Never smoker ROS ROS ED Constitutional Constitutional ED: Denies chills or fever(s) Eyes Eyes: Denies blurry vision or change in vision ENT ENT ED: Denies rhinorrhea or sore throat Cardiovascular Cardiovascular: Denies chest pain or palpitations Respiratory/Chest Respiratory/Chest: Denies cough or dyspnea Gastrointestinal Gastrointestinal: Denies nausea or vomiting Genitourinary Genitourinary ED: Denies dysuria or hematuria Musculoskeletal Musculoskeletal: Reports neck pain; Denies back pain Integumentary Denies abscess or rash Neurologic Neurologic: Denies headache(s) or weakness Allergic/Immunologic Allergic/Immunologic ED: Denies mouth swelling or urticaria EXAM Physical Exam Const Vital Signs: 11/07/22 11:22 11/07/22 12:22 Temperature 96.7 F L Temperature Source Temporal Pulse Rate 89 Respiratory Rate 16 Respiratory Effort Normal Respiratory Pattern Normal Blood Pressure 126/75 H Blood Pressure Mean 92 Pulse Ox 98 Oxygen Delivery Method Room Air Positive well nourished, well developed and obese General Appearance ED: well developed and NAD Nutritional Appearance: obese HEENT Reports moist mucous membranes HEENT Narrative: Oral mucosa is pink and moist. Oropharynx is clear. Airway is patent. There is no pharyngeal edema noted. Neck no lymphadenopathy, supple and no JVD Neck Narrative: There is mild tenderness of the neck anteriorly. There is no erythema. There is no induration noted. There is no warmth noted. There are no urticaria noted. There is no lymphadenopathy noted. Resp normal respiratory effort and clear to auscultation bilaterally Cardio regular rate and regular rhythm GI normal to inspection, nondistended, normoactive bowel sounds and non-tender Palpation: soft Extremity normal to inspection General Extremety ED: Negative for edema or tenderness General Extremity: Negative for edema Neuro oriented x3, CN's II-XII intact bilaterally and no sensory deficits noted Sensorium / Orientation: alert Motor Exam: strength 5/5 throughout Psych mental status grossly normal Skin no rashes or lesions noted Skin Narrative: Skin is warm and dry. There is no urticaria noted. There is no erythema. There are no rashes noted. MDM MDM MDM Narrative Medical decision making narrative: Patient was advised that this is most likely possible allergic reaction versus side effect. Patient was given a dose of prednisone here. Patient will be observed in the emergency department. Since she took 4 tablets of Benadryl mnlh-xxd-uxjydmt prior to arrival, I do not feel she needs any more Benadryl at this time. Treatment and Re-Evaluation :: Patient had no further symptoms on reevaluation. Patient was given a prescription for a short course of prednisone. Patient was instructed to take Benadryl as needed. Patient was instructed to follow-up with her primary care physician in 5 to 7 days for reevaluation. Patient was instructed to not take any more Mounjaro shots until she follows up with her primary care physician. Discharge Plan Triage Chief Complaint: Other, Pain/Inj ED Provider: Yony He Dx/Rx/DC Orders Clinical Impression: Adverse effects of medication Instructions: ED ADVERSE DRUG REACTION Allergic Prescriptions: New prednisone 20 mg tablet 60 mg PO DAILY Qty: 12 0RF No Action magnesium 500 mg Tablet 15 mg PO DAILY sertraline [Zoloft] 100 mg Tablet 100 mg PO DAILY jqxaqwgpcj-mwkoahrikhjkc-iicb 50-325-40 mg Tablet 2 tab PO Q4H PRN (Reason: migraines) ferrous sulfate [iron] 325 mg (65 mg iron) Tablet 325 mg PO DAILY hydroxyzine pamoate [Vistaril] 25 mg Capsule 25 mg PO DAILY cholecalciferol (vitamin D3) [Vitamin D3] 125 mcg (5,000 unit) Tablet 125 mcg PO DAILY + DHA 28 mg iron- 975 mcg-200 mg Combo Pack 1 pkg PO DAILY Primary Care Provider: Veronika Villalobos Referrals: Cheryl Almanzar PA-C [Non-Staff] - 5-7 Days Disposition Disposition: Home, Self Care
[2022-11-07] MEDS: predniSONE 20 MG Tablet 60 MG PO (12:07)
== END 2022-11-07 14:48 | disposition home or self-care (01) ==
PROVIDERS: Emergency Provider Emergency Medicine; Visit Provider Emergency Medicine
DX: R22.0 Localized swelling, mass and lump, head (principal); T50.995A Adverse effect of other drugs, medicaments and biological substances, initial encounter; F41.9 Anxiety disorder, unspecified; F32.A Depression, unspecified; Z79.899 Other long term (current) drug therapy; Z90.49 Acquired absence of other specified parts of digestive tract
CPT/HCPCS: 99283